=== PATIENT | female | born 1950 | race Caucasian/White ===

== ENCOUNTER 2021-12-03 09:47 | Emergency (ER) | payer MEDICARE ==
[~2021-12-03] VITALS: Ht 157.5 cm; Wt 59.0 kg
[2021-12-03] MEDS ORDERED: ONDANSETRON 4 MG/2 ML VIAL IV ONE (11:00)
[2021-12-03] MEDS ORDERED: IV NORMAL SALINE 1000 ML BAG IV ONE (11:00)
[2021-12-03] MEDS ORDERED: HYOS0.3738 PO (11:03)
[2021-12-03] MEDS ORDERED: ONDANSETRON 4 MG/2 ML VIAL ONE (11:03)
[2021-12-03] MEDS ORDERED: ESOM40CA52 PO (11:03)
[2021-12-03] MEDS ORDERED: FAMO20TA8 PO (11:03)
[2021-12-03] MEDS ORDERED: TIMO5DRO18 RIGHTEYE (11:05)
[2021-12-03] MEDS ORDERED: URSO250T12 PO (11:05)
[2021-12-03] MEDS ORDERED: BENA1TAB16 PO (11:05)
[2021-12-03] MEDS ORDERED: POTA10TA21 PO (11:06)
[2021-12-03] MEDS ORDERED: ASPI-612 PO (11:06)
[2021-12-03] MEDS ORDERED: SUMA50TA17 PO (11:06)
[2021-12-03] MEDS ORDERED: CHOL10005 PO (11:09)
[2021-12-03] MEDS ORDERED: ABAL1.56 SUBCUT (11:09)
[2021-12-03] MEDS ORDERED: ALPR0.255 PO (11:09)
[2021-12-03] MEDS ORDERED: SERT-440 PO (11:10)
[2021-12-03] MEDS ORDERED: ATOR40TA PO (11:10)
[2021-12-03] MEDS ORDERED: CYCL5TAB PO (11:10)
[2021-12-03 11:23] LABS: HEMATOCRIT 40.8 % (31.2-41.9); MEAN CORPUSCULAR VOLUME 90.9 fL (75.5-95.3); PLATELET COUNT (AUTO) 205 K/uL (179-408)
[2021-12-03 11:26] LABS: *BLOOD, URINE 2+ (NEGATIVE); *CLARITY,URINE CLOUDY (CLEAR); *COLOR,URINE YELLOW (YELLOW); *KETONES,URINE 1+ (NEGATIVE); LEUKOCYTE ESTERASE ,URINE 3+ (NEGATIVE); NITRITE, URINE POSITIVE (NEGATIVE); UGLUCOSE TRACE (NEGATIVE)
[2021-12-03 11:52] LABS: CARBON DIOXIDE 23 mmol/L (21-32); CHLORIDE 99 mmol/L (98-107); CREATININE 1.9 mg/dL (0.6-1.3); GLUCOSE 137 mg/dL (74-106); POTASSIUM 3.7 mmol/L (3.5-5.1); UREA NITROGEN, BLOOD 28 mg/dL (7-18)
[2021-12-03 11:57] LABS: ALANINE AMINOTRANSFERASE 65 U/L (14-59); ALKALINE PHOSPHATASE 93 U/L (50-136); ASPARTATE AMINOTRANSFERASE 55 U/L (15-37); BILIRUBIN,DIRECT 0.4 mg/dL (0.0-0.2); BILIRUBIN,TOTAL 1.2 mg/dL (0.2-1.0); TOTAL PROTEIN, SERUM 8.5 g/dL (6.4-8.2)
[2021-12-03 12:04] LABS: LIPASE 108 U/L (73-393)
[2021-12-03 12:10] LABS: *BILIRUBIN,URIN 1+ (NEGATIVE)
[2021-12-03] MEDS ORDERED: CEFTRIAXONE 1 G in IV DEXTROSE 5% 50 ML IV ONE (12:45)
[2021-12-03] MEDS ORDERED: CEFTRIAXONE /D5W 50ML IVPB **ER PYXIS IV ONE (12:54)
[2021-12-03] MEDS ORDERED: ONDA4TAB11 PO (13:19)
[2021-12-03] MEDS ORDERED: CEPH500C2 PO (13:19)
[2021-12-03 13:35] VITALS: BP 105/73
--- NOTE | 2021-12-03 13:36 | NUR ---
Patient discharged to home in stable condition. Written and verbal after care instructions given. Patient verbalizes understanding of instructions. Stressed follow up or return to ER for worsening s/s.
[2021-12-03 15:22] LABS: BACTERIA,URINE MANY /HPF (NONE SEEN); SQUAMOUS EPITHELIAL CELL,UR MODERATE /HPF (NONE SEEN); WBC,URINE TNTC /HPF (0-3)
== END 2021-12-03 13:42 | disposition home or self-care (01) ==
LOC: ER 09:47
DX: R11.2 Nausea with vomiting, unspecified (principal); N39.0 Urinary tract infection, site not specified; I44.4 Left anterior fascicular block; E78.5 Hyperlipidemia, unspecified; K58.9 Irritable bowel syndrome, unspecified; K21.9 Gastro-esophageal reflux disease without esophagitis; I12.9 Hypertensive chronic kidney disease with stage 1 through stage 4 chronic kidney disease, or unspecified chronic kidney disease; N18.30 Chronic kidney disease, stage 3 unspecified; Z20.822 Contact with and (suspected) exposure to COVID-19; D47.2 Monoclonal gammopathy; E21.3 Hyperparathyroidism, unspecified; H40.9 Unspecified glaucoma; R76.0 Raised antibody titer; H04.129 Dry eye syndrome of unspecified lacrimal gland; Z88.6 Allergy status to analgesic agent; Z79.82 Long term (current) use of aspirin; Z79.899 Other long term (current) drug therapy
CPT/HCPCS: 99284; 74176; 96365; 96361; 96375; 80076; 80048; 81001; 83690; 85025; 87186; 87086; 87077; 36415; 93005; U0003; J0696; J2405; J7040; A4663